=== PATIENT | female | born 1995 | race Two or more races ===

== ENCOUNTER 2018-09-06 06:18 | Emergency (ER) | payer MEDICAID ==
[~2018-09-06] VITALS: Ht 167.6 cm; Wt 64.4 kg
[2018-09-06] MEDS ORDERED: ONDANSETRON HCL/PF 4 MG/2 ML VIAL IVP ONE (06:30)
[2018-09-06] MEDS ORDERED: IV NS 0.9% 1,000 ML BAG IV ONE (06:30)
--- NOTE | 2018-09-06 06:30 | NUR ---
PT BIBMOTHER C/O ABDOMINAL PAIN WITH MULTIPLE EPISODES OF VOMITTING X1 DAY. DENIES CP, SOB, DYSURIA, HEMATURIA, FEVER. PT AAOX4. RESPIRATIONS EVEN AND UNLABORED. SKIN WARM AND INTACT. PT APPEARS UNCOMFORTABLE. PLACED IN GOWN AND ON MONITOR, WILL CONTINUE TO MONITOR
--- NOTE | 2018-09-06 06:30 | NUR ---
MD AT BEDSIDE FOR EVALUATION
[2018-09-06] MEDS ORDERED: ONDANSETRON HCL/PF 4 MG/2 ML VIAL ONE (06:33)
--- NOTE | 2018-09-06 06:44 | NUR ---
IV INITIATED LEFT AC 20G. LABS DRAWN FROM SITE. CALLED LAB FOR AUTO WINDER. IV INTACT AND PATENT, PLACED ON SALINE LOCK
[2018-09-06 06:55] LABS: BASOPHILS % (AUTO) 0.2 % (0.0-2.0); EOSINOPHILS % (AUTO) 0.3 % (0.0-6.0); HEMATOCRIT 45 % (33-45); HEMOGLOBIN 15.3 g/dL (11.5-14.8); LYMPHOCYTES # (AUTO) 0.4 /CMM (0.8-4.8); LYMPHOCYTES % (AUTO) 3.7 % (20.0-44.0); MEAN CORPUSCULAR HGB CONC 34 g/dl (31.0-36.0); MEAN CORPUSCULAR VOLUME 90 fL (82-100); MONOCYTES # (AUTO) 0.3 /CMM (0.1-1.30); MONOCYTES % (AUTO) 3.4 % (2.0-12.0); NEUTROPHILS # (AUTO) 9.2 /CMM (1.8-8.9); NEUTROPHILS % (AUTO) 92.4 % (43.0-81.0); PLATELET COUNT (AUTO) 218 /CMM (150-450); RED BLOOD CELL COUNT(AUTO) 4.99 MIL/uL (4.0-5.2)
[2018-09-06 07:03] LABS: CALCIUM, SERUM 9.3 mg/dL (8.5-10.1); CREATININE 0.9 mg/dL (0.6-1.3); POTASSIUM 3.9 mmol/L (3.5-5.1)
[2018-09-06 07:09] LABS: ALBUMIN 4.2 g/dL (3.4-5.0); BILIRUBIN,DIRECT 0.2 mg/dL (0.0-0.2)
[2018-09-06] MEDS ORDERED: MORPHINE SULFATE INJ 2 MG/ML DISP.SYRIN IV ONE (07:30)
[2018-09-06] MEDS ORDERED: MORPHINE SULFATE INJ 4 MG/ML DISP.SYRIN ONE (07:33)
--- NOTE | 2018-09-06 07:46 | NUR ---
PARTIAL DOSE GIVEN PER PT REQUEST, MD DR. PARRISH AWARE, MORPHINE 2MG IVP. WASTED MORPHINE 2MG WITH TIRSO ROUSSEAU
--- NOTE | 2018-09-06 09:06 | NUR ---
Patient discharged to home in stable condition. Written and verbal after care instructions given. Patient verbalizes understanding of instruction. IV removed. Catheter intact and site benign. Pressure and 4x4 applied to site. No bleeding noted.
[2018-09-06 09:07] VITALS: BP 110/75
== END 2018-09-06 09:09 | disposition home or self-care (01) ==
LOC: ER 06:18
DX: T62.8X1A Toxic effect of other specified noxious substances eaten as food, accidental (unintentional), initial encounter (principal); R11.10 Vomiting, unspecified; Y92.89 Other specified places as the place of occurrence of the external cause
CPT/HCPCS: 36415; 71045; 74176; 80048; 80076; 83690; 84702; 85025; 96361; 96374; 96375; 99284; J2270; J2405; J7030